=== PATIENT | female | born 1950 | race Caucasian/White ===

== ENCOUNTER 2019-04-18 11:14 | Emergency (ER) | payer MEDICARE, OTHER ==
[~2019-04-18] VITALS: Ht 167.6 cm; Wt 76.4 kg
[~2019-04-18 11:14] MED LIST: ALPR0.5T PO; GABA300C16 PO; NAPR-985 PO
[2019-04-18 11:27] VITALS: Ht 167.6 cm; Wt 76.4 kg
[2019-04-18] MEDS: KETOROLAC 15 MG INJ IV STA ×2 (11:27→11:53)
[2019-04-18] MEDS ORDERED: SOD CHLORIDE 0.9% 1,000 ML IV STA (11:27)
[2019-04-18] MEDS ORDERED: ALPRAZOLAM 0.25 MG TAB PO ONE (12:30)
[2019-04-18 14:33] VITALS: BP 115/90; PULSE 60; RESP 14
== END 2019-04-18 14:30 | disposition home or self-care (01) ==
LOC: E/R 11:14
DX: R20.2 Paresthesia of skin (principal); R40.2142 Coma scale, eyes open, spontaneous, at arrival to emergency department; R40.2252 Coma scale, best verbal response, oriented, at arrival to emergency department; R40.2362 Coma scale, best motor response, obeys commands, at arrival to emergency department
CPT/HCPCS: 36415; 70450; 80053; 81003; 83690; 84484; 85025; 93005; 99285; J1885; J7030